=== PATIENT | female | born 1955 | race Caucasian/White ===

== ENCOUNTER → 2018-07-28 | Outpatient (CLI) | payer MEDICARE ==
[~2018-07-28] MED LIST: CATHETER FLUSH 10 ML SYR IV PRN
[2018-07-28 13:07] VITALS: BP 115/60
--- NOTE | 2018-07-28 18:02 | STRESS TEST ---
DATE OF SERVICE: 07/28/2018 RESTING AND POST EXERCISE TECHNETIUM-99M TETROFOSMIN ORDERING PHYSICIAN: ISMAEL Mi PRIMARY CARE PHYSICIAN: [facility]. CLINICAL DIAGNOSIS: Chest discomfort. Baseline images were carried out after injection of 10.93 mCi of technetium-99m Tetrofosmin. Subsequently, exercise was carried out on a treadmill. Reese protocol was employed. She exhibited somewhat low exercise capacity and indicated close to the end of phase stage III that she would not be able to go any further. The treadmill had to be slowed down and 30.8 mCi of technetium-99m Tetrofosmin were injected. The exercise was continued for another half a minute and then had to be stopped because of the patient's marked fatigue. She did not report chest discomfort. She attained approximately 85% of maximum predicted heart rate. At the time of injection of regadenoson, she had attained 80% of maximum predicted heart rate. At peak exercise, 30.8 mCi of technetium-99m Tetrofosmin were injected. Review of images at rest and following stress does not indicate any significant perfusion defects consistent with significant myocardial ischemia or infarction. The electrocardiogram, at peak exercise, shows considerable baseline artifact, but there does not appear to be significant ST segment deviation. Gated images show normal global left ventricular systolic function, normal regional wall motion. Left ventricular ejection fraction is calculated to be 63%. Left ventricular end diastolic volume is 44 mL. TID is absent (1.08). CONCLUSIONS: 1. Somewhat suboptimal study because the patient did not achieve target heart rate (85% of maximum predicted heart rate). 2. Somewhat low exercise capacity. 3. No evidence of any significant myocardial ischemia or infarction to approximately 80% of maximum predicted heart rate. 4. Normal global left ventricular systolic function with a calculated ejection fraction of 63%. 5. Normal regional wall motion. Job ID: [id number] DocumentID: [id number] Dictated Date: 07/28/2018 14:32:26 Customer Account Coordinator Date: 07/28/2018 18:01:46 Dictated By: JANNETH HERNANDEZ MD, MA, FACP, FACC,
== END ==
LOC: CARD 10:41
PROVIDERS: ATTEND Nurse Practitioner Family
DX: R07.9 Chest pain, unspecified (principal); I10 Essential (primary) hypertension; E78.2 Mixed hyperlipidemia
CPT/HCPCS: 78452; 93017; 93306